=== PATIENT | male | born 1945 | race Caucasian/White ===

== ENCOUNTER 2017-11-30 17:29 | Emergency (ER) | payer MEDICARE, BC ==
[~2017-11-30] VITALS: Ht 182.9 cm; Wt 86.0 kg
[~2017-11-30 17:29] MED LIST: AMLO5TAB16 PO; ASPI81TA52 PO; CYAN250010 PO; DOCU100C40 PO; FISH OIL DR 1,1 EACH PO; GARL10004 PO; GLIP5TAB26 PO; HYDR-3972 PO; HYDR-565 PO; LINA5TAB4 PO; LISI40TA4 PO; METF500T7 PO; METO25TA6 PO; ROSU10TA PO; VITA400C65 PO
[2017-11-30] MEDS ORDERED: ondansetron/PF 4mg/2ml inj IV ONE (20:25)
[2017-11-30] MEDS ORDERED: cyclobenzaprine 10mg tablet PO ONE (20:25)
[2017-11-30] MEDS ORDERED: ketorolac tromethamine 15mg/ml inj. IV ONE (21:05)
[2017-11-30] MEDS ORDERED: HYDR-565 PO (22:09)
[2017-11-30] MEDS ORDERED: CYCL-1 PO (22:09)
[2017-11-30] MEDS ORDERED: CELE-193 PO (22:13)
[2017-11-30 22:28] VITALS: BP 196/88
== END 2017-11-30 22:29 | disposition home or self-care (01) ==
LOC: ER 17:30
DX: S70.12XA Contusion of left thigh, initial encounter (principal); I10 Essential (primary) hypertension; I25.10 Atherosclerotic heart disease of native coronary artery without angina pectoris; E11.9 Type 2 diabetes mellitus without complications; E78.00 Pure hypercholesterolemia, unspecified; Z95.1 Presence of aortocoronary bypass graft; Z87.891 Personal history of nicotine dependence; Z79.82 Long term (current) use of aspirin; Z79.84 Long term (current) use of oral hypoglycemic drugs; Z91.013 Allergy to seafood; W01.0XXA Fall on same level from slipping, tripping and stumbling without subsequent striking against object, initial encounter; Y93.89 Activity, other specified; Y92.89 Other specified places as the place of occurrence of the external cause; Y99.8 Other external cause status
CPT/HCPCS: 73502; 96374; 96375; 96376; 99284; J1885; J2270; J2405

== ENCOUNTER 2018-07-25 02:44 | Outpatient (CLI) | payer MEDICARE, BC ==
[~2018-07-25 02:44] MED LIST changes: +CYCL-1 PO
== END 2018-07-25 23:59 | disposition home or self-care (01) ==
LOC: DIABETIC 02:44
PROVIDERS: ATTEND Specialist
DX: E11.9 Type 2 diabetes mellitus without complications (principal); I10 Essential (primary) hypertension; Z91.013 Allergy to seafood; Z79.82 Long term (current) use of aspirin; Z79.899 Other long term (current) drug therapy; Z87.891 Personal history of nicotine dependence; Z96.652 Presence of left artificial knee joint; Z85.22 Personal history of malignant neoplasm of nasal cavities, middle ear, and accessory sinuses
CPT/HCPCS: G0108